=== PATIENT | female | born 1950 | race Caucasian/White ===

== ENCOUNTER 2025-06-21 08:57 | Outpatient (CLI) | payer OTHER | END 2025-06-21 08:58 | disposition home or self-care (01) | LOC: RAD 08:57 | PROVIDERS: ATTEND Internal Medicine | DX: R06.00 Dyspnea, unspecified (principal); I51.7 Cardiomegaly; J44.9 Chronic obstructive pulmonary disease, unspecified; K44.9 Diaphragmatic hernia without obstruction or gangrene | CPT/HCPCS: 71046 ==